=== PATIENT | female | born 1980 | race Caucasian/White ===

== ENCOUNTER 2016-12-03 23:17 | Emergency (ER) | payer MEDICAID ==
[2016-12-04] MEDS ORDERED: Acetaminophen/HYDROcodone 325-5 MG Tab PO ONE (00:28)
[2016-12-04] MEDS ORDERED: Cephalexin 500 MG Cap PO ONE (00:28)
--- NOTE | 2016-12-04 00:41 | EDM.PDOC ---
ED HPI ENT - General Chief Complaint: ENT Problem Stated Complaint: PT HAS TOOTHACHE Time Seen by Provider: 12/03/16 23:40 Source of Information: Reports: Patient, Family History Limitations: Reports: No limitations - History of Present Illness INITIAL COMMENTS - FREE TEXT/NARRATIVE: HISTORY AND PHYSICAL: History of present illness: [Patient with toothache. States she broke her tooth. Pain is worsening. Patient states she is from out of town and needs pain control for her fractured tooth. No fevers chills sweats or shaking chills. No headache or stiff neck] Review of systems: As per history of present illness and below otherwise all systems reviewed and negative. Past medical history: As per history of present illness and as reviewed below otherwise noncontributory. Surgical history: As per history of present illness and as reviewed below otherwise noncontributory. Social history: No reported history of drug or alcohol abuse. Family history: As per history of present illness and as reviewed below otherwise noncontributory. Physical exam: Left maxillary molar dental fracture and missing portion of tooth that appears chronic. No gingival swelling or mass no drainage. No tongue elevation normal oropharynx HEENT: Normocephalic, atraumatic, pupils normal and symmetrical, supple neck, no meningismus, normal color Lungs: Normal and symmetrical chest wall excursion bilateral with no tachypnea or increased work of breathing, grossly normal chest exam Heart: No tachycardia in triage Abdomen: Normal-appearing, nondistended, no visible mass or asymmetry Pelvis: Normal-appearing Genitourinary: Deferred Rectal exam: Deferred Extremities: Atraumatic, normal use and range of motion, no visible evidence of gross neurovascular compromise Neuro: Awake, alert, oriented. Normal and appropriate mental status. Cranial nerves grossly unremarkable. Motor function normal. Nonfocal neurologic exam. Diagnostics: [] Therapeutics: [] Impression: [Acute dentalgia Dental caries] Plan: [Patient with caries mild pain multiple requests for narcotics. Patient aware to use NSAIDs and finish Keflex as prescribed. Upon discharge patient specifically requests narcotic analgesia. She states she has tramadol at home and is not working. When told she would not be given a narcotic prescription in the emergency department, the patient stated that she would "just come back later for it. " Definitive disposition and diagnosis as appropriate pending reevaluation and review of above. 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: - Past Surgical History Female Surgical History: Reports: section Other Female Surgeries/Procedures: x2 Musculoskeletal Surgical History: Reports: Shoulder surgery Social & Family History - Family History Family Medical History: Noncontributory - Tobacco Use Smoking Status *Q: Current Every Day Smoker Years of Tobacco use: 15 Packs/Tins Daily: 0.5 - Caffeine Use Caffeine Use: Reports: Soda - Recreational Drug Use Recreational Drug Use: No ED ROS ENT - Review of Systems Review Of Systems: See Below (Per history of present illness) ED EXAM, ENT - Physical Exam Exam: See Below (Per history of present illness) Course - Vital Signs Last Recorded V/S: Last Vital Signs Temp 36.6 C 12/03/16 23:37 Pulse 92 12/04/16 01:00 Resp 16 12/04/16 01:00 BP 130/70 12/04/16 01:00 Pulse Ox 98 12/04/16 01:00 - Orders/Labs/Meds Meds: Medications Discontinued Medications Generic Name Dose Route Start Last Admin Trade Name Romeo PRN Reason Stop Dose Admin Hydrocodone Bitart/Acetaminophen 1 tab 12/04/16 00:28 12/04/16 00:36 [place] 325-5 Mg PO 12/04/16 00:29 1 tab ONETIME ONE Administration Cephalexin 500 mg 12/04/16 00:28 12/04/16 00:36 Keflex PO 12/04/16 00:29 500 mg ONETIME ONE Administration Departure - Departure Time of Disposition: 00:39 Disposition: Home, Self-Care 01 Condition: good Clinical Impression: Caries, Toothache Prescriptions: Cephalexin [Keflex] 500 mg PO QID 10 Days Instructions: Dental Care and Dentist Visits, Dental Caries, [id number] Referrals: PCP,None [Primary Care Provider] - Forms: ED Department Discharge Additional Instructions: your toothache does not have any drainable abscess of the gums. Take Motrin and Tylenol as needed for pain. Finish Keflex as prescribed and followup with a dentist in 2 days. Return immediately for new severe or worsening symptoms
[2016-12-04 01:11] VITALS: BP 130/70
== END 2016-12-04 01:05 | disposition home or self-care (01) ==
LOC: MW.ED 23:17
DX: K02.9 Dental caries, unspecified (principal); F17.210 Nicotine dependence, cigarettes, uncomplicated; Z98.890 Other specified postprocedural states; Z79.899 Other long term (current) drug therapy; Z88.0 Allergy status to penicillin; Z88.2 Allergy status to sulfonamides; Z88.5 Allergy status to narcotic agent
CPT/HCPCS: 99282; A9270; 99283

== ENCOUNTER 2017-01-03 17:16 | Emergency (ER) | payer MEDICAID ==
[2017-01-03] MEDS ORDERED: Ketorolac 60 MG/2 ML SDV IM ONE (17:37)
[2017-01-03 17:45] VITALS: BP 137/88
[2017-01-03] MEDS ORDERED: Lidocaine 2% Viscous Solution 15 ML Cup PO ONE (17:45)
[2017-01-03] MEDS ORDERED: Benzocaine 20% Topical Spray UD MUCMEM ONE (17:45)
--- NOTE | 2017-01-03 17:45 | EDM.PDOC ---
ED HPI GENERAL MEDICAL PROBLEM - General Chief Complaint: General Stated Complaint: PT HAS TOOTHACHE Time Seen by Provider: 01/03/17 17:21 Source of Information: Reports: Patient History Limitations: Reports: No Limitations - History of Present Illness INITIAL COMMENTS - FREE TEXT/NARRATIVE: Presents reporting that she is from [place] but is here in [place] with her mother who is dying. She has a tooth in her left upper quadrant that broke off a couple of days ago and pieces keep falling off of it and now the pain is so bad that it is throbbing. She cannot sleep. 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 ED EXAM, GENERAL - Physical Exam Exam: See Below General Appearance: Alert, Moderate Distress (pain, social) Ears: Normal External Exam Nose: Normal Inspection Throat/Mouth: Other (#14 tooth is broken in half down to the gum with associated labial and gum erythema) Head: Atraumatic, Normocephalic Neck: Normal Inspection Respiratory/Chest: No Respiratory Distress, Lungs Clear Cardiovascular: Normal Peripheral Pulses, Regular Rate, Rhythm GI/Abdominal: Soft Neurological: Alert, Oriented Psychiatric: Tearful Skin Exam: Warm, Dry, Intact, Normal Color, No Rash Lymphatic: No Adenopathy Course - Vital Signs Last Recorded V/S: Last Vital Signs Temp 36.6 C 01/03/17 17:32 Pulse 119 H 01/03/17 17:32 Resp 19 01/03/17 17:32 BP 137/88 01/03/17 17:32 Pulse Ox 97 01/03/17 17:32 - Orders/Labs/Meds Meds: Medications Discontinued Medications Generic Name Dose Route Start Last Admin Trade Name Romeo PRN Reason Stop Dose Admin Ketorolac Tromethamine 60 mg 01/03/17 17:37 Toradol IM 01/03/17 17:38 ONETIME ONE Departure - Departure Time of Disposition: 17:42 Disposition: Home, Self-Care 01 Condition: good Clinical Impression: Broken tooth Qualifiers: Encounter type: initial encounter Fracture type: closed Qualified Code(s): S02.5XXA - Fracture of tooth (traumatic), initial encounter for closed fracture - Discharge Information Forms: ED Department Discharge Additional Instructions: 1. Dental balls bite down with affected tooth 10 minutes every 2 hours 2. Clindamycin 3 times a day, antibiotic 3. Lortab every 4-6 hours as needed for pain 4. Continue efforts to see a dentist using the list provided
== END 2017-01-03 18:01 | disposition home or self-care (01) ==
LOC: MW.ED 17:16
DX: S02.5XXA Fracture of tooth (traumatic), initial encounter for closed fracture (principal); F17.210 Nicotine dependence, cigarettes, uncomplicated; Z79.899 Other long term (current) drug therapy; Z88.0 Allergy status to penicillin; Z88.2 Allergy status to sulfonamides; Z88.5 Allergy status to narcotic agent; Z98.890 Other specified postprocedural states
CPT/HCPCS: 96372; 99282; A9270; J1885; 99283

== ENCOUNTER 2017-07-17 15:10 | Emergency (ER) | payer SELFPAY ==
[2017-07-17] MEDS ORDERED: Acetaminophen/HYDROcodone 325-5 MG Tab PO ONE (15:35)
--- NOTE | 2017-07-17 15:44 | EDM.PDOC ---
ED HPI GENERAL MEDICAL PROBLEM - General Chief Complaint: Lower Extremity Injury/Pain Stated Complaint: RT LEG HURTS Time Seen by Provider: 07/17/17 15:18 Source of Information: Reports: Patient History Limitations: Reports: No Limitations - History of Present Illness INITIAL COMMENTS - FREE TEXT/NARRATIVE: HISTORY AND PHYSICAL: History of present illness: Patient is a 36-year-old female who presents to the emergency room today with complaints of right knee pain. She states she was walking and tripped over her cat resulting in a fall down 2-3 stairs landing on her knee. She denies hitting her head or any loss of consciousness. States she took the next 3 hours to try to help alleviate her pain on her own. During that time she has had increased swelling and bruising to the left lateral knee. States that she is able to bear weight but it is painful. No previous injury or surgeries to the affected extremity. Denies any numbness or tingling. Review of systems: As per history of present illness and below otherwise all systems reviewed and negative. Past medical history: As per history of present illness and as reviewed below otherwise noncontributory. Surgical history: As per history of present illness and as reviewed below otherwise noncontributory. Social history: No reported history of drug or alcohol abuse. Family history: As per history of present illness and as reviewed below otherwise noncontributory. Physical exam: Gen.: Well-developed well-nourished 36-year-old female. Alert and oriented. Appears nontoxic and in no acute distress. HEENT: Atraumatic, normocephalic, pupils reactive, negative for conjunctival pallor or scleral icterus, mucous membranes moist, throat clear, neck supple, nontender, trachea midline. Lungs: Clear to auscultation, breath sounds equal bilaterally, chest nontender. Heart: S1S2, regular, negative for clicks, rubs, or JVD. Abdomen: Soft, obese, nondistended, nontender. Negative for masses or hepatosplenomegaly. Negative for costovertebral tenderness. Pelvis: Stable nontender. Genitourinary: Deferred. Rectal: Deferred. Extremities: Diffuse bruising to the left lateral knee with soft tissue swelling. The area is tender to palpation. No knee instability with manipulation of the joint. Negative drawer test. No pain with palpation to the popliteal. Strong pedal pulse. The parsons, ankle foot were palpated without any pain or discomfort. Is negative for cords or calf pain. Neurovascular unremarkable. Neuro: Awake, alert, oriented. Cranial nerves II through XII unremarkable. Cerebellum unremarkable. Motor and sensory unremarkable throughout. Exam nonfocal. She does have an allergy to codeine (hives/rash), but has had Percocet in [place] without any complication/problems. Did discuss with the patient that if the x- ray is normal due to the amount of bruising and swelling and would like her to follow-up with the orthopedic provider next week. Her injury is suspicious for a medial collateral ligament tear/injury. Unfortunately we do not do MRIs to the emergency room. Extremities shows mild soft tissue swelling to the anterior proximal tibia no acute fracture or subluxation. We'll place the patient in a knee immobilizer and give her crutches. Will have her follow-up with orthopedic physician next week. As we discussed previously I do want her to follow-up for possible MRI if she continues to have this problem. Will prescribe her [place] 5/325mg 1 tab every 4-6 hours as needed for pain, dispense 15-refill. Diagnostics: X-ray of the right knee Therapeutics: [place] 5/325 now Impression: Knee injury Plan: 1. Your x-ray shows no acute fracture or subluxation, although shows soft tissue swelling. As we discussed previously I am suspicious of internal knee damage (possible MCL tear) you may need an MRI in the near future. Please follow -up with an orthopedic provider next week. Your name has been sent for a referral to their clinic. 2. Please use your crutches and knee immobilizer when up. Be nonweightbearing. Rest, ice, elevate the affected extremity. 3. A prescription for [place] 5/325mg 1 tab every 4-6 hours as needed for pain. This medication is a narcotic, so please do not take it when driving, needing to be functioning at work, or taking care of her child. Take ibuprofen or Tylenol as needed for daytime use. 4. Return to the ED as needed and as discussed. Definitive disposition and diagnosis as appropriate pending reevaluation and review of above. 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: Neurological History: Reports: Migraines - Infectious Disease History Infectious Disease History: Reports: Chicken Pox - Past Surgical History Female Surgical History: Reports: Section Musculoskeletal Surgical History: Reports: Shoulder Surgery Social & Family History - Family History Family Medical History: Noncontributory - Tobacco Use Smoking Status *Q: Current Every Day Smoker Years of Tobacco use: 16 Packs/Tins Daily: 0.5 Used Tobacco, but Quit: No Second Hand Smoke Exposure: Yes - Caffeine Use Caffeine Use: Reports: Coffee, Energy Drinks, Soda Caffeine Use Comment: 6 cups per day - Recreational Drug Use Recreational Drug Use: No Review of Systems - Review of Systems Review Of Systems: ROS reveals no pertinent complaints other than HPI. ED EXAM, GENERAL - Physical Exam Exam: See Below (See dictation) Course - Vital Signs Last Recorded V/S: Last Vital Signs Temp 97.2 F 07/17/17 15:22 Pulse 108 H 07/17/17 15:22 Resp 16 07/17/17 15:22 BP 138/84 07/17/17 15:22 Pulse Ox 98 07/17/17 15:22 - Orders/Labs/Meds Orders: Active Orders 24 hr Category Date Time Status Knee 3V Rt [CR] Stat Exams 07/17/17 15:33 Taken DME for Discharge [COMM] Stat Oth 07/17/17 16:40 Ordered Meds: Medications Discontinued Medications Generic Name Dose Route Start Last Admin Trade Name Freq PRN Reason Stop Dose Admin Hydrocodone Bitart/Acetaminophen 1 tab 07/17/17 15:35 07/17/17 15:50 [place] 325-5 Mg PO 07/17/17 15:36 1 tab ONETIME ONE Administration Departure - Departure Time of Disposition: 16:38 Disposition: Home, Self-Care 01 Clinical Impression: Knee injury Qualifiers: Encounter type: initial encounter Laterality: right Qualified Code(s): S89.91XA - Unspecified injury of right lower leg, initial encounter - Discharge Information Referrals: PCP,None [Primary Care Provider] - Forms: ED Department Discharge Additional Instructions: My general discharge The following information is given to patients seen in the emergency department who are being discharged to home. This information is to outline your options for follow-up care. We provide all patients seen in our emergency department with a follow-up referral. The need for follow-up, as well as the timing and circumstances, are variable depending upon the specifics of your emergency department visit. If you don't have a primary care physician on staff, we will provide you with a referral. We always advise you to contact your personal physician following an emergency department visit to inform them of the circumstance of the visit and for follow-up with them and/or the need for any referrals to a consulting specialist. The emergency department will also refer you to a specialist when appropriate. This referral assures that you have the opportunity for follow-up care with a specialist. All of these measure are taken in an effort to provide you with optimal care, which includes your follow-up. Under all circumstances we always encourage you to contact your private physician who remains a resource for coordinating your care. When calling for follow-up care, please make the office aware that this follow-up is from your recent emergency room visit. If for any reason you are refused follow-up, please contact the [facility] Emergency Department at and asked to speak to the emergency department charge nurse. [facility] - [facility] Professional [address], [address] [place] [address] 1. Your x-ray shows no acute fracture or subluxation, although shows soft tissue swelling. As we discussed previously I am suspicious of internal knee damage (possible MCL tear) you may need an MRI in the near future. Please follow -up with an orthopedic provider next week. Your name has been sent for a referral to their clinic. 2. Please use your crutches and knee immobilizer when up, please be nonweightbearing. Rest, ice, elevate the affected extremity. 3. A prescription for [place] 5/325mg 1 tab every 4-6 hours as needed for pain. This medication is a narcotic, so please do not take it when driving, needing to be functioning at work, or taking care of her child. Take ibuprofen or Tylenol as needed for daytime use. 4. Return to the ED as needed and as discussed. - My Orders Last 24 Hours: My Active Orders 07/17/17 15:33 Knee 3V Rt [CR] Stat 07/17/17 16:40 DME for Discharge [COMM] Stat - Assessment/Plan Last 24 Hours: My Active Orders 07/17/17 15:33 Knee 3V Rt [CR] Stat 07/17/17 16:40 DME for Discharge [COMM] Stat
[2017-07-17 17:10] VITALS: BP 125/82
--- NOTE | 2017-07-20 10:50 | CR ---
EXAM DATE: 07/17/17 PATIENT'S AGE: 36 Patient: CHRISSY MAY Facility: [place], [place] Site . Site : [id number] Study: XRay Knee Right [id number]/[id number] 4:15:11 PM Ordering Physician: Doctor Leonard Final Report: Indication: Fall Technique: Three views right knee Comparison: None Findings: Bones: Alignment is normal. No fractures or bone lesions. Joint spaces: Unremarkable. Soft tissues: Mild soft tissue swelling anterior to the proximal tibia. Impression: Mild soft tissue swelling anterior to the proximal tibia. No acute fracture or subluxation. Dictated by Betzaida Browning MD @ Jul 17 2017 4:22PM (Electronic Signature) Report Signed by Proxy. ROGELIO
== END 2017-07-17 17:10 | disposition home or self-care (01) ==
LOC: MW.ED 15:10
DX: S80.02XA Contusion of left knee, initial encounter (principal); S89.91XA Unspecified injury of right lower leg, initial encounter; F17.210 Nicotine dependence, cigarettes, uncomplicated; Z79.899 Other long term (current) drug therapy; Z88.0 Allergy status to penicillin; Z88.2 Allergy status to sulfonamides; Z88.5 Allergy status to narcotic agent; W10.8XXA Fall (on) (from) other stairs and steps, initial encounter; Y93.K1 Activity, walking an animal
CPT/HCPCS: 73562; 99283; A9270